=== PATIENT | male | born 1965 | race Caucasian/White ===

== ENCOUNTER 2017-08-06 21:27 | Emergency (ER) | payer OTHER ==
[2017-08-07] MEDS: KETOROLAC 30 MG INJ IM (02:02)
[2017-08-07] MEDS: ACETAMINOPHEN 325 MG TAB PO (02:02)
== END 2017-08-07 04:29 | disposition home or self-care (01) ==
LOC: FTE 21:27
DX: S13.4XXA Sprain of ligaments of cervical spine, initial encounter (principal); V43.52XA Car driver injured in collision with other type car in traffic accident, initial encounter
CPT/HCPCS: 72040; 72100; 96372; 99284-25